=== PATIENT | male | born 1955 | race Caucasian/White ===

== ENCOUNTER 2016-12-09 16:50 | Emergency (ER) | payer OTHER ==
[2016-12-09 17:22] VITALS: BP 121/73
[2016-12-09] MEDS ORDERED: Ketorolac 30 MG/ML SDV IM ONE (18:03)
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
== END 2016-12-09 19:07 | disposition home or self-care (01) ==
LOC: LL.ED 16:50
DX: S13.4XXA Sprain of ligaments of cervical spine, initial encounter (principal); G44.209 Tension-type headache, unspecified, not intractable; M62.830 Muscle spasm of back; X58.XXXA Exposure to other specified factors, initial encounter
CPT/HCPCS: 96372; 99283; J1885; J3360

== ENCOUNTER 2023-01-20 14:40 | Emergency (ER) | payer OTHER ==
[2023-01-20 17:22] VITALS: BP 106/66; PULSE 63
== END 2023-01-20 17:20 | disposition home or self-care (01) ==
LOC: LL.ED 14:40
DX: M62.830 Muscle spasm of back (principal); Z79.899 Other long term (current) drug therapy; Y99.0 Civilian activity done for income or pay; W22.8XXA Striking against or struck by other objects, initial encounter
CPT/HCPCS: 72040; 72070; 72100; 99283